=== PATIENT | male | born 1980 | race Caucasian/White ===

== ENCOUNTER 2022-10-19 19:50 | Emergency (ER) | payer MEDICAID, OTHER ==
[~2022-10-19] VITALS: Ht 177.8 cm; Wt 90.7 kg
[2022-10-19 20:06] VITALS: BP_SYST 135
--- NOTE | 2022-10-19 20:11 | NUR ---
Patient triaged and placed in waiting room. VS checked and patient appears in no acute distress at this time. Accompanied by family , awaiting available bed, and MD notified of need for MSE.
--- NOTE | 2022-10-19 22:10 | NUR ---
Called pt x 3, no answer. Patient left without being seen. No further treatment provided. ER MD aware
--- NOTE | 2022-10-19 22:38 | NUR ---
CALLED FOR MSE. PATIENT NOT IN WAITING ROOM
== END 2022-10-19 22:10 | disposition left against medical advice (07) ==
LOC: SED 19:50
DX: H57.11 Ocular pain, right eye (principal); Z53.21 Procedure and treatment not carried out due to patient leaving prior to being seen by health care provider